=== PATIENT | male | born 1995 | race Caucasian/White ===

== ENCOUNTER 2016-12-07 08:16 | Emergency (ER) | payer OTHER ==
[~2016-12-07] VITALS: Ht 193 cm; Wt 100.3 kg
[2016-12-07] MEDS ORDERED: MOTRIN800 MG PO (12:01)
[2016-12-07] MEDS ORDERED: PREDNISONE20 MG PO (12:01)
[2016-12-07] MEDS ORDERED: FLEXERIL10 MG PO (12:01)
[2016-12-07 12:13] VITALS: BP 152/95
== END 2016-12-07 12:14 | disposition home or self-care (01) ==
LOC: EME 08:16
DX: M54.2 Cervicalgia (principal); M54.6 Pain in thoracic spine
CPT/HCPCS: 72040; 72070; 99281; 99284; J1885; J7512